=== PATIENT | male | born 1960 | race Caucasian/White ===

== ENCOUNTER 2022-06-08 11:54 | Inpatient (IN) | payer MEDICARE ==
[2022-06-08] VITALS (16 sets, daily range): BP systolic 131–152; BP diastolic 60–74
[~2022-06-08] VITALS: Ht 190.5 cm; Wt 71.2 kg
[2022-06-08 12:51] LABS: BASO% 0.1 % (0-3); HEMATOCRIT 47.9 % (39.0-50.0); HEMOGLOBIN 15.9 g/dl (14.0-18.0); IMMATURE GRANULOCYTES 0.3 % (0.0-5.0); LYMPH% 6.4 % (15-41); MEAN CELL VOLUME 93.9 fL CALC (80.0-100.0); MEAN CORPUSCULAR HGB 31.2 pG CALC (26.0-32.0); MEAN CORPUSCULAR HGB CONC 33.2 g/dL CAL (32.0-36.0); NEUT# 14.48 thou/uL (1.82-7.42); NEUT% 85.2 % (42-76); RED BLOOD COUNT 5.1 mill/uL (4.70-6.10); RED CELL DISTRI WIDTH 15.3 % (11.5-15.5)
[2022-06-08 13:26] LABS: ALKALINE PHOSPHATASE 95 u/l (38-126); ANION GAP 27 (6-22 (CALC)); BILIRUBIN, TOTAL 1.2 mg/dL (0.0-1.4); CARBON DIOXIDE 19 mmol/l (22-30); CHLORIDE 114 mmol/l (95-108); CREATININE 4.6 mg/dL (0.7-1.3); GFR FOR AFR.AMER. 16 ML/MIN (>=60 (CALC)); GFR OTHER RACES 13 ML/MIN (>=60 (CALC)); LIPASE 201 u/l (23-300); POTASSIUM 3.7 mmol/l (3.5-5.1); SGOT/AST 168 u/l (19-48); SODIUM 157 mmol/l (137-146); TOTAL PROTEIN 8.4 g/dL (6.3-8.2)
[2022-06-08 13:41] LABS: BUN 115 mg/dL (8-23); BUN/CREATININE RATIO 25 (12-20 (CALC)); CPK > 3200 u/l (52-200)
[2022-06-08 14:29] LABS: URINE BLOOD DIPSTICK LARGE (NEGATIVE); URINE COLOR YELLOW; URINE GLUCOSE - DIPSTICK NEGATIVE (NEGATIVE); URINE KETONE TRACE mg/dL (NEGATIVE); URINE LEUK ESTERASE NEGATIVE (Negative); URINE NITRITE - DIPSTICK NEGATIVE (Negative); URINE PROTEIN - DIPSTICK 30 mg/dL (NEG-TRACE); URINE SPECIFIC GRAVITY >=1.030; URINE UROBILINOGEN - DIPSTICK 0.2 E.U./dL (0.2)
[2022-06-08 14:34] LABS: URINE BILIRUBIN - DIPSTICK MODERATE (NEGATIVE); URINE CLARITY HAZY; URINE EPITHELIAL CELLS MODERATE EPI/hpf (0-FEW)
[2022-06-08 14:35] LABS: URINE MUCUS FEW hpf (NONE-FEW)
[2022-06-08] MEDS ORDERED: QUETIAPINE FUM200 MG PO (17:04)
[2022-06-08] MEDS ORDERED: AMBIEN5 MG PO (17:04)
[2022-06-08] MEDS ORDERED: XANAX1 MG PO (17:05)
[2022-06-08] MEDS ORDERED: LAMICTAL25 M2 PO (17:06)
[2022-06-09] VITALS (42 sets, daily range): BP systolic 109–174; BP diastolic 59–94
[2022-06-09 06:00] LABS: HEMATOCRIT 42.8 % (39.0-50.0); HEMOGLOBIN 14.5 g/dl (14.0-18.0); MEAN CELL VOLUME 95.1 fL CALC (80.0-100.0); MEAN CORPUSCULAR HGB 32.2 pG CALC (26.0-32.0); MEAN CORPUSCULAR HGB CONC 33.9 g/dL CAL (32.0-36.0); RED BLOOD COUNT 4.5 mill/uL (4.70-6.10); RED CELL DISTRI WIDTH 15.2 % (11.5-15.5)
[2022-06-09 06:20] LABS: BILIRUBIN, TOTAL 1.3 mg/dL (0.0-1.4); MAGNESIUM 3.4 mg/dL (1.6-2.3); POTASSIUM 4.3 mmol/l (3.5-5.1); TOTAL PROTEIN 6.8 g/dL (6.3-8.2)
[2022-06-09 06:26] LABS: CREATININE 2.7 mg/dL (0.7-1.3)
[2022-06-10] VITALS (7 sets, daily range): BP systolic 85–111; BP diastolic 43–61
[2022-06-10 06:08] LABS: CHLORIDE 125 mmol/l (95-108); MAGNESIUM 2.9 mg/dL (1.6-2.3)
[2022-06-10 06:10] LABS: ALBUMIN 2.8 g/dL (3.2-5.0); BUN 53 mg/dL (8-23); CARBON DIOXIDE 24 mmol/l (22-30); CREATININE 1.6 mg/dL (0.7-1.3); GFR FOR AFR.AMER. 53 ML/MIN (>=60 (CALC)); GFR OTHER RACES 44 ML/MIN (>=60 (CALC)); POTASSIUM 2.7 mmol/l (3.5-5.1); SODIUM 150 mmol/l (137-146)
[2022-06-10 06:11] LABS: CPK > 1600 u/l (52-200)
[2022-06-11 00:34] VITALS: BP 129/60
[2022-06-11 04:03] VITALS: BP 124/59
[2022-06-11 06:28] LABS: MEAN CELL VOLUME 93.9 fL CALC (80.0-100.0); RED BLOOD COUNT 3.74 mill/uL (4.70-6.10); RED CELL DISTRI WIDTH 14.6 % (11.5-15.5)
[2022-06-11 06:41] LABS: HEMATOCRIT 35.1 % (39.0-50.0); HEMOGLOBIN 11.6 g/dl (14.0-18.0)
[2022-06-11 06:45] LABS: ALBUMIN 2.5 g/dL (3.2-5.0); CARBON DIOXIDE 26 mmol/l (22-30); CHLORIDE 118 mmol/l (95-108); CREATININE 1.1 mg/dL (0.7-1.3); GFR FOR AFR.AMER. > 60 ML/MIN (>=60 (CALC)); GFR OTHER RACES > 60 ML/MIN (>=60 (CALC)); POTASSIUM 3.2 mmol/l (3.5-5.1); SODIUM 145 mmol/l (137-146)
[2022-06-11 06:52] LABS: BUN 29 mg/dL (8-23)
[2022-06-11 18:43] VITALS: BP 108/63
[2022-06-12] VITALS (8 sets, daily range): BP systolic 99–141; BP diastolic 56–97
[2022-06-12 06:12] LABS: ANION GAP 4 (6-22 (CALC)); BUN 23 mg/dL (8-23); BUN/CREATININE RATIO 21 (12-20 (CALC)); CARBON DIOXIDE 29 mmol/l (22-30); CHLORIDE 112 mmol/l (95-108); CREATININE 1.1 mg/dL (0.7-1.3); GFR FOR AFR.AMER. > 60 ML/MIN (>=60 (CALC)); GFR OTHER RACES > 60 ML/MIN (>=60 (CALC)); MAGNESIUM 2.4 mg/dL (1.6-2.3); SODIUM 141 mmol/l (137-146)
[2022-06-12 06:15] LABS: HEMATOCRIT 36.4 % (39.0-50.0); HEMOGLOBIN 12.4 g/dl (14.0-18.0); MEAN CELL VOLUME 93.1 fL CALC (80.0-100.0); MEAN CORPUSCULAR HGB 31.7 pG CALC (26.0-32.0); MEAN CORPUSCULAR HGB CONC 34.1 g/dL CAL (32.0-36.0); RED BLOOD COUNT 3.91 mill/uL (4.70-6.10); RED CELL DISTRI WIDTH 14.3 % (11.5-15.5)
[2022-06-13 04:14] VITALS: BP 129/61
[2022-06-13 05:38] LABS: HEMATOCRIT 32.3 % (39.0-50.0); HEMOGLOBIN 10.9 g/dl (14.0-18.0); MEAN CELL VOLUME 91.8 fL CALC (80.0-100.0); MEAN CORPUSCULAR HGB CONC 33.7 g/dL CAL (32.0-36.0); RED BLOOD COUNT 3.52 mill/uL (4.70-6.10); RED CELL DISTRI WIDTH 14.2 % (11.5-15.5)
[2022-06-13 06:30] LABS: ALBUMIN 2.5 g/dL (3.2-5.0); ANION GAP 5 (6-22 (CALC)); BUN 18 mg/dL (8-23); BUN/CREATININE RATIO 20 (12-20 (CALC)); CARBON DIOXIDE 29 mmol/l (22-30); CHLORIDE 109 mmol/l (95-108); CREATININE 0.9 mg/dL (0.7-1.3); GFR FOR AFR.AMER. > 60 ML/MIN (>=60 (CALC)); GFR OTHER RACES > 60 ML/MIN (>=60 (CALC)); MAGNESIUM 2.1 mg/dL (1.6-2.3); SODIUM 141 mmol/l (137-146)
[2022-06-13 07:16] VITALS: BP 116/56
[2022-06-13 12:08] VITALS: BP 133/69
[2022-06-13 15:40] VITALS: BP 118/54
[2022-06-13 19:15] VITALS: BP 134/62
[2022-06-14 00:22] VITALS: BP 98/46
[2022-06-14 04:07] VITALS: BP 117/60
[2022-06-14 05:27] LABS: BASO% 0.2 % (0-3); EOS% 0.9 % (0-8); HEMATOCRIT 32.5 % (39.0-50.0); HEMOGLOBIN 10.9 g/dl (14.0-18.0); IMMATURE GRANULOCYTES 0.5 % (0.0-5.0); LYMPH% 20.9 % (15-41); MEAN CELL VOLUME 93.1 fL CALC (80.0-100.0); MEAN CORPUSCULAR HGB 31.2 pG CALC (26.0-32.0); MEAN CORPUSCULAR HGB CONC 33.5 g/dL CAL (32.0-36.0); MONO% 11.3 % (2-13); NEUT# 3.87 thou/uL (1.82-7.42); NEUT% 66.2 % (42-76); RED BLOOD COUNT 3.49 mill/uL (4.70-6.10); RED CELL DISTRI WIDTH 14.1 % (11.5-15.5)
[2022-06-14 05:42] LABS: ALBUMIN 2.4 g/dL (3.2-5.0); ALKALINE PHOSPHATASE 66 u/l (38-126); ANION GAP 4 (6-22 (CALC)); BUN 14 mg/dL (8-23); BUN/CREATININE RATIO 17 (12-20 (CALC)); CARBON DIOXIDE 31 mmol/l (22-30); CHLORIDE 110 mmol/l (95-108); CREATININE 0.8 mg/dL (0.7-1.3); GFR FOR AFR.AMER. > 60 ML/MIN (>=60 (CALC)); GFR OTHER RACES > 60 ML/MIN (>=60 (CALC)); POTASSIUM 3.1 mmol/l (3.5-5.1); SODIUM 141 mmol/l (137-146)
[2022-06-14 05:54] LABS: BILIRUBIN, TOTAL 0.2 mg/dL (0.0-1.4); SGOT/AST 46 u/l (19-48); TOTAL PROTEIN 4.4 g/dL (6.3-8.2)
[2022-06-14 07:03] VITALS: BP 127/71
[2022-06-14 11:22] VITALS: BP 129/74
[2022-06-14 16:08] VITALS: BP 118/53
[2022-06-14 19:16] VITALS: BP 123/53
[2022-06-15 00:06] VITALS: BP 146/71
[2022-06-15 06:30] LABS: BUN 11 mg/dL (8-23); CARBON DIOXIDE 32 mmol/l (22-30); CHLORIDE 108 mmol/l (95-108); CREATININE 0.8 mg/dL (0.7-1.3); GFR FOR AFR.AMER. > 60 ML/MIN (>=60 (CALC)); GFR OTHER RACES > 60 ML/MIN (>=60 (CALC)); MAGNESIUM 1.9 mg/dL (1.6-2.3); POTASSIUM 2.9 mmol/l (3.5-5.1); SODIUM 141 mmol/l (137-146)
[2022-06-15 06:32] LABS: ALBUMIN 2.9 g/dL (3.2-5.0)
[2022-06-15 07:01] VITALS: BP 134/65
[2022-06-15] MEDS ORDERED: VITAMIN B-12500 MCG PO (13:16)
[2022-06-15] MEDS ORDERED: XANAX1 MG PO (13:16)
[2022-06-15] MEDS ORDERED: KLOR-CON M2020 MEQ PO (13:16)
[2022-06-15] MEDS ORDERED: AMBIEN5 MG PO (13:16)
[2022-06-15] MEDS ORDERED: ERYTHROMYCIN O3.5 GM OD (13:16)
[2022-06-15 14:25] VITALS: BP 124/64
== END 2022-06-15 17:55 | DRG 682 ==
LOC: ED 11:54 → ED-I 16:00 → ED 17:06 → ICU 17:07 → MS2 06-09 10:38
PROVIDERS: Emergency Medicine; Internal Medicine; Internal Medicine Nephrology; ADMIT Internal Medicine; ATTEND Internal Medicine
PROC: 0T9B70Z Drainage of Bladder with Drainage Device, Via Natural or Artificial Opening (ICD-10-PCS; principal; 2022-06-08)
DX: N17.0 Acute kidney failure with tubular necrosis (principal); G92.8 Other toxic encephalopathy; E87.0 Hyperosmolality and hypernatremia; M62.82 Rhabdomyolysis; E87.20 Acidosis, unspecified; F20.0 Paranoid schizophrenia; F31.9 Bipolar disorder, unspecified; E86.9 Volume depletion, unspecified; E87.6 Hypokalemia; E83.39 Other disorders of phosphorus metabolism; E53.8 Deficiency of other specified B group vitamins; F41.9 Anxiety disorder, unspecified; F17.200 Nicotine dependence, unspecified, uncomplicated; T43.596A Underdosing of other antipsychotics and neuroleptics, initial encounter; T42.4X6A Underdosing of benzodiazepines, initial encounter; Z91.128 Patient's intentional underdosing of medication regimen for other reason; Z60.2 Problems related to living alone; Z20.822 Contact with and (suspected) exposure to COVID-19
CPT/HCPCS: J3420